=== PATIENT | female | born 1970 | race Caucasian/White ===

== ENCOUNTER 2017-08-29 11:11 | Emergency (ER) | payer OTHER ==
[2017-08-29 14:08] VITALS: BP 148/94
--- NOTE | 2017-08-29 14:32 | UC ---
Abdominal Pain Female HPI - HPI Summary HPI Summary: 47 yo female with about a 2 day hx of LUQ abd pain feels gassy n/v x one abd feels distended chills ?fever myalgias fatigue no UTI symptoms on period much improved today vs yesterday pain 4/10 and waxing/waning - History of Current Complaint Chief Complaint: UCGI Stated Complaint: STOMACH ACHE Time Seen by Provider: 08/29/17 14:11 Hx Obtained From: Patient Hx Last Menstrual Period: 08/25/17 Onset/Duration: Gradual Onset Timing: Constant Severity Initially: Moderate Pain Intensity: 4 - occassional 8 Pain Scale Used: 0-10 Numeric Location: Discrete At: LUQ Radiates: No Character: Cramping Associated Signs and Symptoms: Positive: Fever - ??, Decreased Appetite, Nausea , Vomiting Allergies/Adverse Reactions: Allergies Allergy/AdvReac Type Severity Reaction Status Date / Time Penicillins Allergy Hives/Diff. Verified 08/29/17 13:59 Breathing/I tching Home Medications: Home Medications Acetaminophen TAB* [Tylenol TAB*] 650 mg PO ONCE PRN 08/29/17 [History Confirmed 08/29/17] PMH/Surg Hx/FS Hx/Imm Hx Previously Healthy: Yes - Surgical History Surgical History: Yes Surgery Procedure, Year, and Place: ovary removed 20 years ago. back surgery , lumbar spine 2008. left mcl repair 2013 - Family History Known Family History: Positive: Hypertension, Diabetes, Other - cva stomach [place] - Social History Alcohol Use: None Substance Use Type: None Smoking Status (MU): Former Smoker - Immunization History Most Recent Influenza Vaccination: none Review of Systems Constitutional: Fever, Chills, Fatigue Skin: Negative Eyes: Negative ENT: Negative Respiratory: Negative Cardiovascular: Negative Gastrointestinal: Abdominal Pain, Vomiting, Nausea Genitourinary: Negative Motor: Negative Neurovascular: Negative Musculoskeletal: Negative Neurological: Negative Psychological: Negative Is Patient Immunocompromised?: No All Other Systems Reviewed And Are Negative: Yes Physical Exam Triage Information Reviewed: Yes Appearance: Well-Appearing, No Pain Distress, Well-Nourished Vital Signs: Initial Vital Signs Temp 98.5 F 08/29/17 14:00 Pulse 82 08/29/17 14:00 Resp 18 08/29/17 14:00 BP 148/94 08/29/17 14:00 Pulse Ox 98 02/09/18 14:00 Vital Signs Reviewed: Yes Eyes: Positive: Conjunctiva Clear ENT: Positive: Hearing grossly normal. Negative: Nasal congestion, Nasal drainage, Trismus, Muffled voice, Hoarse voice Neck: Positive: Supple, Nontender Respiratory: Positive: Lungs clear, Normal breath sounds, No respiratory distress, No accessory muscle use Cardiovascular: Positive: RRR, No Murmur Abdomen Description: Positive: Soft. Negative: Nontender - tender diffusely, CVA Tenderness (R), CVA Tenderness (L), Guarding, Peritoneal Signs Bowel Sounds: Positive: Present, Hyperactive Musculoskeletal: Positive: ROM Intact, No Edema Neurological: Positive: Alert Psychological Exam: Normal Skin Exam: Normal Re-Evaluation - Re-Evaluation First Eval Re-Evaluation Time: 15:05 Change: Unchanged Abd Pain Female Course/Dx - Course Course Of Treatment: discussed option of transfer to ER. I explained we could not do a CT or stat blood work. She declined and wishes to see if she continues to improve. states she will go to the ER if symptoms worsen. urine dip (++) blood ....she is on her period. influenza (-) - Differential Dx/Diagnosis Provider Diagnoses: abdominal pain of uncertain cause. ? due to viral illness Discharge - Discharge Plan Condition: Stable Disposition: HOME Patient Education Materials: Gastroenteritis (ED), Acute Abdominal Pain (ED) Forms: *Work Release Referrals: JULIAN Boykin [Primary Care Provider] -
== END 2017-08-29 15:07 | disposition home or self-care (01) ==
LOC: UCCORT 11:11
DX: R10.12 Left upper quadrant pain (principal); Z87.891 Personal history of nicotine dependence
CPT/HCPCS: 81003; 87502; 99211; G0463

== ENCOUNTER 2018-11-10 16:17 | Emergency (ER) | payer OTHER ==
[2018-11-10 16:34] VITALS: BP 198/112
--- NOTE | 2018-11-10 16:56 | UC ---
Throat Pain/Nasal Stef HPI - HPI Summary HPI Summary: 48 -year-old female who has had some sinus pressure for approximately 5 days. She thinks she has a sinus infection. She does have seasonal allergies for which she does not take any medications. An incidental finding was her elevated blood pressure. She has been on antihypertensive medication in the past however she change doctors and then never establish care with a new doctor and just let the prescriptions ran out. She denies any chest pain, shortness of breath, headache, weakness, nausea. - History of Current Complaint Chief Complaint: UCGeneralIllness Stated Complaint: SINUS PRESSURE,CONGESTION,LEFT EAR CONCERN Time Seen by Provider: 11/10/18 16:22 Hx Obtained From: Patient Hx Last Menstrual Period: 10/17/18 ?: No Onset/Duration: Gradual Onset Severity: Mild Pain Intensity: 6 Related History: Seasonal Allergies - Epiglottits Risk Factors Epiglottis Risk Factors: Negative - Allergies/Home Medications Allergies/Adverse Reactions: Allergies Allergy/AdvReac Type Severity Reaction Status Date / Time Penicillins Allergy Hives/Diff. Verified 11/10/18 16:35 Breathing/I tching Home Medications: Home Medications Ibuprofen [Motrin Ib] 400 mg PO Q6HR PRN 11/10/18 [History Confirmed 11/10/18] guaiFENesin [Mucinex] 600 mg PO Q12HR PRN 11/10/18 [History Confirmed 11/10/18] PMH/Surg Hx/FS Hx/Imm Hx Previously Healthy: Yes Cardiovascular History: Hypertension - Patient ran out of medications one or 2 years ago and never establish care with a new primary care provider. - Surgical History Surgical History: Yes Surgery Procedure, Year, and Place: ovary removed 20 years ago. back surgery , lumbar spine 2008. left mcl repair 2013 - Family History Known Family History: Positive: Hypertension, Diabetes, Other - cva stomach [place] - Social History Alcohol Use: Rare Substance Use Type: None Smoking Status (MU): Former Smoker - Immunization History Most Recent Influenza Vaccination: none Review of Systems All Other Systems Reviewed And Are Negative: Yes ENT: Positive: Nasal Discharge, Sinus Congestion, Sinus Pain/Tenderness Is Patient Immunocompromised?: No Physical Exam Triage Information Reviewed: Yes Appearance: Well-Appearing, No Pain Distress, Well-Nourished Vital Signs: Initial Vital Signs Temp 97.9 F 11/10/18 16:27 Pulse 90 11/10/18 16:27 Resp 14 11/10/18 16:27 BP 198/112 11/10/18 16:27 Pulse Ox 100 11/10/18 16:27 Vital Signs Reviewed: Yes Eye Exam: Normal Eyes: Positive: Conjunctiva Clear, Other: - PERRLA, EOMI ENT: Positive: Pharynx normal, TMs normal, Uvula midline Neck: Positive: Supple, Nontender, No Lymphadenopathy Respiratory: Positive: Lungs clear, Normal breath sounds, No respiratory distress, No accessory muscle use Cardiovascular: Positive: RRR, No Murmur, Pulses Normal, Brisk Capillary Refill Abdomen Description: Positive: Nontender, No Organomegaly, Soft Bowel Sounds: Positive: Present Musculoskeletal: Positive: Strength Intact, ROM Intact, No Edema - Good peripheral pulses, neuro sensation and capillary refill. Full range of motion. Neurological: Positive: Alert, Muscle Tone Normal - Reflexes +2 at the knee, good finger to nose bilaterally, cranial nerves II through XII are intact, normal dystidiokinesis, good heel-to-toe forward and backward, good heel-to- lakhani bilaterally, Romberg is negative. Psychological Exam: Normal Skin Exam: Normal Throat Pain/Nasal Course/Dx - Course Course Of Treatment: I don't believe this is a bacterial sinus infection I believe this is more an allergic rhinitis. Patient is willing to try Flonase 2 sprays in each nostril once a day for a week and then decrease to 1 spray in each nostril once a day for a week. Because of the incidental finding of the elevated blood pressure we attempted to make an appointment at the [facility] however that was closed so the patient was given the [employer] card and she stated that she would call first thing in the morning and make an appointment to be seen for her hypertension and for treatment. At this point in time this is asymptomatic hypertension. She was advised if she develops any chest pain, difficulty breathing, diaphoresis, weakness dizziness or severe headache she is to 911 and go to the emergency room. She is agreeable to this plan of action. - Differential Dx/Diagnosis Provider Diagnosis: Allergic rhinitis, Elevated blood pressure reading Discharge - Sign-Out/Discharge Documenting (check all that apply): Patient Departure All imaging exams completed and their final reports reviewed: No Studies - Discharge Plan Condition: Stable Disposition: HOME Prescriptions: Fluticasone NASAL SPRAY 50MCG* [Flonase NASAL SPRAY 50MCG*] 2 spray BOTH NARES DAILY 7 Days #1 btl Patient Education Materials: Allergic Rhinitis (ED) Referrals: No Primary Care Phys,NOPCP [Primary Care Provider] - [facility] [Outside] Additional Instructions: You are to call the [facility] clinic first thing in the morning and make an appointment to be seen to establish care with a primary care provider and to possibly start on antihypertensive medications. Go to the emergency room if you develops any weakness, chest pain, difficulty breathing, or headache - Billing Disposition and Condition Condition: STABLE Disposition: Home
== END 2018-11-10 17:06 | disposition home or self-care (01) ==
LOC: UCCORT 16:17
DX: J30.9 Allergic rhinitis, unspecified (principal); R03.0 Elevated blood-pressure reading, without diagnosis of hypertension; I10 Essential (primary) hypertension; Z87.891 Personal history of nicotine dependence; Z88.0 Allergy status to penicillin
CPT/HCPCS: 99212; G0463

== ENCOUNTER 2019-02-01 15:27 | Emergency (ER) | payer OTHER ==
[2019-02-01 15:53] VITALS: BP 154/92
--- NOTE | 2019-02-01 16:15 | UC ---
Complaint Female HPI - HPI Summary HPI Summary: Pt presents with c/o sudden onset of urinary urgency, frequency and dysuria X 3 days. - History Of Current Complaint Chief Complaint: UCGU Stated Complaint: URINARY Time Seen by Provider: 02/01/19 16:05 Hx Obtained From: Patient Hx Last Menstrual Period: 01/21 ?: No Onset/Duration: Sudden Onset, Lasting Days, Still Present Timing: Constant Severity Initially: Mild Severity Currently: Mild Pain Intensity: 5 Character: Sharp, Dull, Burning Aggravating Factor(s): Urination Associated Signs And Symptoms: Positive: Negative - Risk Factors Ectopic Risk Factor: Negative Ovarian Torsion Risk Factor: Negative - Allergies/Home Medications Allergies/Adverse Reactions: Allergies Allergy/AdvReac Type Severity Reaction Status Date / Time Penicillins Allergy Hives/Diff. Verified 02/01/19 15:42 Breathing/I tching allergies Allergy Unknown Uncoded 02/01/19 15:44 Reaction Details Home Medications: Home Medications Amlodipine Besylate [Norvasc] 5 mg PO DAILY 02/01/19 [History Confirmed 02/01/19 ] PMH/Surg Hx/FS Hx/Imm Hx Previously Healthy: Yes - Surgical History Surgical History: Yes Surgery Procedure, Year, and Place: ovary removed 20 years ago. back surgery , lumbar spine 2008. left mcl repair 2013 - Family History Known Family History: Positive: Hypertension, Diabetes, Other - cva stomach [place] - Social History Occupation: Employed Full-time Lives: With Family Alcohol Use: Rare Substance Use Type: None Smoking Status (MU): Former Smoker Have You Smoked in the Last Year: No - Immunization History Most Recent Influenza Vaccination: none Vaccination Up to Date: Yes Review of Systems All Other Systems Reviewed And Are Negative: Yes Constitutional: Positive: Negative Skin: Positive: Negative Eyes: Positive: Negative ENT: Positive: Negative Respiratory: Positive: Negative Cardiovascular: Positive: Negative Gastrointestinal: Positive: Negative Genitourinary: Positive: Dysuria, Frequency, Urgency Motor: Positive: Negative Neurovascular: Positive: Negative Musculoskeletal: Positive: Myalgia Neurological: Positive: Negative Psychological: Positive: Negative Is Patient Immunocompromised?: No Physical Exam Triage Information Reviewed: Yes Appearance: Well-Appearing Vital Signs: Initial Vital Signs Temp 99.8 F 02/01/19 15:46 Pulse 77 02/01/19 15:46 Resp 20 02/01/19 15:46 BP 154/92 02/01/19 15:46 Pulse Ox 99 02/01/19 15:46 Vital Signs Reviewed: Yes Eye Exam: Normal ENT Exam: Normal Dental Exam: Normal Neck exam: Normal Respiratory Exam: Normal Cardiovascular Exam: Normal Abdominal Exam: Normal Musculoskeletal Exam: Normal Neurological Exam: Normal Psychological Exam: Normal Skin Exam: Normal Complaint Female Dx - Differential Dx/Diagnosis Differential Diagnosis/HQI/PQRI: Urinary Tract Infection Provider Diagnosis: UTI (urinary tract infection) Discharge - Sign-Out/Discharge Documenting (check all that apply): Patient Departure All imaging exams completed and their final reports reviewed: No Studies - Discharge Plan Condition: Stable Disposition: HOME Prescriptions: Nitrofurantoin Monohyd/M-Cryst [Macrobid 100 mg Capsule] 100 mg PO Q12H #10 cap Phenazopyridine 200 mg (NF) [Pyridium 200 MG tab *] 200 mg PO ONCE #3 tab Patient Education Materials: Urinary Tract Infection in Women (ED) Referrals: Jerrica Sainz MD [Primary Care Provider] - If Needed Additional Instructions: Please follow up with your PCP as needed. If your symptoms worsen, please seek care at the closest emergency room. - Billing Disposition and Condition Condition: STABLE Disposition: Home
== END 2019-02-01 16:30 | disposition home or self-care (01) ==
LOC: UCCORT 15:27
DX: N39.0 Urinary tract infection, site not specified (principal); Z88.0 Allergy status to penicillin; Z87.891 Personal history of nicotine dependence
CPT/HCPCS: 81003; 87077; 87086; 87186; 99212; G0463